=== PATIENT | female | born 1965 | race African-American/Black ===

== ENCOUNTER 2017-09-30 23:12 | Emergency (ER) | payer MEDICAID, OTHER ==
[~2017-09-30] VITALS: Ht 165.1 cm; Wt 68.0 kg
[~2017-09-30 23:12] MED LIST: ASPI81TA35; HYDR-2412; LIP40; NITR1OIN; TOPXL5
[2017-10-01 00:36] LABS: BASOPHILS % 0.6 % (0.0-2.0); HEMATOCRIT. 39.7 % (36.0-48.0); HEMOGLOBIN. 13.6 g/dL (12.0-16.0); MEAN CORPUSCULAR HEMOGLOBIN 31.4 pg (28.0-32.0); MONOCYTES % 8.6 % (2.0-8.0); NEUTROPHILS % 39.8 % (40.0-76.0); PLATELET 273 x1000/uL (130-400); RED BLOOD CELL COUNT 4.32 mill/uL (4.2-5.4)
[2017-10-01 00:37] LABS: CHLORIDE 109 mEq/L (98-107)
[2017-10-01 00:44] LABS: CARBON DIOXIDE 25 mEq/L (21-32); ETHANOL BLOOD < 10 mg/dL
[2017-10-01] MEDS ORDERED: LIDOCAINE 5% PATCH TOP NR (01:30)
[2017-10-01] MEDS ORDERED: POTASSIUM CHLORIDE 20MEQ TABLET SR PO ONE (01:30)
[2017-10-01 01:45] LABS: CLARITY URINE CLEAR (CLEAR); COLOR URINE YELLOW (YELLOW); GLUCOSE URINE NEGATIVE (NEGATIVE); KETONES URINE NEGATIVE (NEGATIVE); LEUKOCYTE ESTERASE URINE NEGATIVE (NEGATIVE); NITRITE URINE NEGATIVE (NEGATIVE); OCCULT BLOOD URINE NEGATIVE (NEGATIVE); PROTEIN URINE NEGATIVE (NEGATIVE); SPECIFIC GRAVITY URINE 1.007 (1.005-1.030); UROBILINOGEN URINE 0.2 E.U./dL (0.2-1.0)
[2017-10-01 01:59] LABS: *AMPHETAMINES SCREEN URINE NEGATIVE (NEGATIVE); *BARBITURATES SCREEN URINE NEGATIVE (NEGATIVE); *BENZODIAZEPINES SCREEN URINE PRESUMTIVE POSITIVE (NEGATIVE); *COCAINE SCREEN URINE NEGATIVE (NEGATIVE); CANNABINOID URINE SCREEN NEGATIVE (NEGATIVE); METHADONE URINE SCREEN NEGATIVE (NEGATIVE); OPIATES URINE SCREEN NEGATIVE (NEGATIVE); PHENCYCLIDINE URINE SCREEN NEGATIVE (NEGATIVE)
[2017-10-01] MEDS ORDERED: HYDROCODONE/ACETAMINOPHEN 5/325MG TABLET PO ONE (04:45)
[2017-10-01 15:00] VITALS: BP 149/95
== END 2017-10-01 16:35 | disposition home or self-care (01) ==
LOC: ER 23:15
DX: T42.4X2A Poisoning by benzodiazepines, intentional self-harm, initial encounter (principal); E78.00 Pure hypercholesterolemia, unspecified; I10 Essential (primary) hypertension; Z59.0 Homelessness; Z79.82 Long term (current) use of aspirin; Z85.841 Personal history of malignant neoplasm of brain; Y92.89 Other specified places as the place of occurrence of the external cause; Z88.6 Allergy status to analgesic agent
CPT/HCPCS: 36415; 80053; 80305; 80307; 80329; 81003; 85025; 99285; G0482

== ENCOUNTER 2018-05-25 12:00 | Emergency (ER) | payer MEDICAID ==
[~2018-05-25] VITALS: Ht 170.2 cm; Wt 76.0 kg
[~2018-05-25 12:00] MED LIST changes: -ASPI81TA35; +ASPI81TA47
[2018-05-25] MEDS ORDERED: CYCLOBENZAPRINE 10MG TABLET PO ONE (13:00)
[2018-05-25] MEDS ORDERED: KETOROLAC 15MG/ML VIAL IV ONE (13:00)
[2018-05-25 17:01] VITALS: BP 132/86
== END 2018-05-25 17:18 | disposition home or self-care (01) ==
LOC: ER 12:00
DX: M54.42 Lumbago with sciatica, left side (principal); R94.31 Abnormal electrocardiogram [ECG] [EKG]; D49.6 Neoplasm of unspecified behavior of brain; I10 Essential (primary) hypertension; Z88.5 Allergy status to narcotic agent; Z79.899 Other long term (current) drug therapy
CPT/HCPCS: 81025; 93005; 93971; 96374; 99284; J1885; Z7610

== ENCOUNTER 2018-06-01 10:36 | Emergency (ER) | payer MEDICAID ==
[~2018-06-01] VITALS: Ht 170.2 cm; Wt 65.0 kg
[2018-06-01] MEDS ORDERED: KETOROLAC 30MG/ML VIAL IM ONE (12:45)
[2018-06-01 14:55] VITALS: BP 147/94
== END 2018-06-01 15:06 | disposition home or self-care (01) ==
LOC: ER 10:36
DX: M17.12 Unilateral primary osteoarthritis, left knee (principal); M79.662 Pain in left lower leg; F41.9 Anxiety disorder, unspecified; I10 Essential (primary) hypertension; Z88.5 Allergy status to narcotic agent; Z79.82 Long term (current) use of aspirin
CPT/HCPCS: 73562; 96372; 99284; J1885

== ENCOUNTER 2019-09-03 10:09 | Emergency (ER) | payer MEDICAID ==
[~2019-09-03] VITALS: Ht 180.3 cm; Wt 77.0 kg
[~2019-09-03 10:09] MED LIST changes: -HYDR-2412; +HYDR-459
[2019-09-03] MEDS ORDERED: FAMOTIDINE 20MG/2ML VIAL IV ONE (10:30)
[2019-09-03] MEDS ORDERED: METHYLPREDNISOLONE SOD SUCC 125 MG/2 ML VIAL IV ONE (10:30)
[2019-09-03] MEDS ORDERED: DIPHENHYDRAMINE 50MG/ML VIAL IV ONE (10:30)
[2019-09-03 10:54] LABS: BASOPHILS % 0.4 % (0.0-2.0); EOSINOPHILS % 0.3 % (0.0-5.0); HEMATOCRIT. 41.7 % (36.0-48.0); HEMOGLOBIN. 14.4 g/dL (12.0-16.0); LYMPHOCYTES % 42.6 % (20.0-50.0); MEAN CORPUSCULAR HEMOGLOBIN 32.4 pg (28.0-32.0); MEAN CORPUSCULAR VOLUME 93.6 fL (81.0-99.0); MEAN PLATELET VOLUME 6.6 fl (7.4-10.4); MONOCYTES % 10.7 % (2.0-8.0); PLATELET 297 x1000/uL (130-400); RED BLOOD CELL COUNT 4.45 mill/uL (4.2-5.4); RED CELL DISTRIBUTION WIDTH 12.8 % (11.6-14.6)
[2019-09-03 10:57] LABS: CHLORIDE 108 mEq/L (98-107)
[2019-09-03 11:01] LABS: ETHANOL BLOOD < 10 mg/dL
[2019-09-03 13:03] VITALS: BP 127/79
== END 2019-09-03 13:10 | disposition home or self-care (01) ==
LOC: ER 10:09
DX: T78.40XA Allergy, unspecified, initial encounter (principal); X58.XXXA Exposure to other specified factors, initial encounter; I10 Essential (primary) hypertension
CPT/HCPCS: 36415; 80053; 80320; 85025; 96374; 96375; 99283; J1200; J2930; J3490; G0480

== ENCOUNTER 2022-09-10 16:51 | Inpatient (IN) | payer MEDICARE, MEDICAID ==
[~2022-09-10] VITALS: Ht 180.3 cm; Wt 77.7 kg
[2022-09-10] MEDS ORDERED: ACETAMINOPHEN 325MG TABLET PO NR (18:39)
[2022-09-10 20:18] LABS: CHLORIDE 108 mEq/L (98-107)
[2022-09-10 20:19] LABS: BASOPHILS % 0.5 % (0.0-2.0); EOSINOPHILS % 0.5 % (0.0-5.0); HEMATOCRIT. 47.4 % (36.0-48.0); HEMOGLOBIN. 16.3 g/dL (12.0-16.0); MEAN CORPUSCULAR HEMOGLOBIN 32.6 pg (28.0-32.0); MEAN CORPUSCULAR VOLUME 94.8 fL (81.0-99.0); MEAN PLATELET VOLUME 6.7 fl (7.4-10.4); MONOCYTES % 10.2 % (2.0-8.0); NEUTROPHILS % 48.8 % (40.0-76.0); PLATELET 288 x1000/uL (130-400); RED CELL DISTRIBUTION WIDTH 13.1 % (11.6-14.6)
[2022-09-10 20:26] LABS: ETHANOL BLOOD < 10 mg/dL
[2022-09-10] MEDS ORDERED: ASPIRIN 325MG EC TABLET PO ONE (23:30)
[2022-09-11] MEDS ORDERED: HYDROCODONE/ACETAMINOPHEN 5/325MG TABLET PO NR (00:30)
[2022-09-11 01:04] LABS: CLARITY URINE CLEAR (CLEAR); COLOR URINE YELLOW (YELLOW); KETONES URINE NEGATIVE (NEGATIVE); LEUKOCYTE ESTERASE URINE NEGATIVE (NEGATIVE); NITRITE URINE NEGATIVE (NEGATIVE); OCCULT BLOOD URINE NEGATIVE (NEGATIVE); PROTEIN URINE NEGATIVE (NEGATIVE); SPECIFIC GRAVITY URINE 1.022 (1.005-1.030)
[2022-09-11 01:19] LABS: *AMPHETAMINES SCREEN URINE NEGATIVE (NEGATIVE); *BARBITURATES SCREEN URINE NEGATIVE (NEGATIVE); *BENZODIAZEPINES SCREEN URINE NEGATIVE (NEGATIVE); *COCAINE SCREEN URINE PRESUMTIVE POSITIVE (NEGATIVE); CANNABINOID URINE SCREEN PRESUMTIVE POSITIVE (NEGATIVE); METHADONE URINE SCREEN NEGATIVE (NEGATIVE); OPIATES URINE SCREEN NEGATIVE (NEGATIVE); PHENCYCLIDINE URINE SCREEN NEGATIVE (NEGATIVE)
[2022-09-11] MEDS ORDERED: DOCUSATE SODIUM 100MG CAPSULE PO PRN (05:45)
[2022-09-11] MEDS ORDERED: NA PHOS,M-B/NA PHOS,DI-BA ENEMA 118ML PR PRN (05:45)
[2022-09-11] MEDS ORDERED: CLONIDINE 0.1MG TABLET PO PRN (05:45)
[2022-09-11] MEDS ORDERED: GUAIFENESIN 200MG/10ML SUGAR FREE UDC PO PRN (05:45)
[2022-09-11] MEDS ORDERED: ONDANSETRON HCL 4MG/2ML INJ IV PRN (05:45)
[2022-09-11] MEDS ORDERED: MAGNESIUM/ALUMINUM HYDROXIDE/SIMETHICONE 30ML UDC PO PRN (05:45)
[2022-09-11] MEDS ORDERED: ACETAMINOPHEN 325MG TABLET PO PRN (05:45)
[2022-09-11] MEDS ORDERED: IPRATROPIUM/ALBUTEROL 0.5-3(2.5)MG/3ML NEB HHN PRN (05:45)
[2022-09-11 06:10] LABS: BASOPHILS % 0.4 % (0.0-2.0); EOSINOPHILS % 0.8 % (0.0-5.0); HEMATOCRIT. 45.3 % (36.0-48.0); HEMOGLOBIN. 15.3 g/dL (12.0-16.0); LYMPHOCYTES % 42.6 % (20.0-50.0); MEAN CORPUSCULAR HEMOGLOBIN 32.5 pg (28.0-32.0); MEAN CORPUSCULAR VOLUME 95.8 fL (81.0-99.0); MEAN PLATELET VOLUME 6.3 fl (7.4-10.4); MONOCYTES % 13.3 % (2.0-8.0); NEUTROPHILS % 42.9 % (40.0-76.0); PLATELET 301 x1000/uL (130-400); RED BLOOD CELL COUNT 4.72 mill/uL (4.2-5.4); RED CELL DISTRIBUTION WIDTH 12.9 % (11.6-14.6)
[2022-09-11 06:17] LABS: CHLORIDE 109 mEq/L (98-107)
[2022-09-11 06:33] LABS: HDL CHOLESTEROL 42 mg/dL (40-59); LDL CHOLESTEROL 122 mg/dL (5-100); PHOSPHORUS 3.9 mg/dL (2.5-4.9); T4 FREE 0.88 ng/dL (0.76-1.46)
[2022-09-11] MEDS ORDERED: DEXTROSE 50% WATER 50ML SYRINGE IV PRN (07:00)
[2022-09-11] MEDS ORDERED: IOHEXOL-350 100 ML BOTTLE ONE (08:10)
[2022-09-11] MEDS: INSULIN LISPRO 100 UNITS/ML SUBCUT SCH ×4 (08:20→20:31)
[2022-09-11] MEDS: BLOOD SUGAR DIAGNOSTIC STRIP TEST SCH ×4 (08:44→20:22)
[2022-09-11 09:00] VITALS: BP 150/97
[2022-09-11] MEDS ORDERED: NITROGLYCERIN OINT 1GM/INCH UDPKT TD SCH (09:00)
[2022-09-11 09:14] VITALS: BP 150/97
[2022-09-11] MEDS ORDERED: GABA100C MT (09:30)
[2022-09-11] MEDS: NICOTINE 21MG PATCH TD SCH (09:43)
[2022-09-11] MEDS: HYDROXYZINE 25MG TABLET PO SCH (09:43)
[2022-09-11] MEDS: ENOXAPARIN 40MG/0.4ML SYR SUBCUT SCH (09:43)
[2022-09-11] MEDS: FAMOTIDINE 20MG TABLET PO SCH ×2 (09:43→20:31)
[2022-09-11] MEDS: ASPIRIN 81MG EC TABLET PO SCH (09:43)
[2022-09-11] MEDS: LEVETIRACETAM 500MG TABLET PO SCH ×2 (09:43→20:31)
[2022-09-11] MEDS ORDERED: GADOTERATE MEGLUMINE 5 MMOL/10 ML VIAL IV ONE (11:33)
[2022-09-11 12:00] VITALS: BP 154/88
[2022-09-11 16:00] VITALS: BP 133/78
[2022-09-11 20:02] VITALS: BP 126/63
[2022-09-11] MEDS: ATORVASTATIN CALCIUM 40MG TABLET PO SCH (20:31)
[2022-09-11] MEDS: ACETAMINOPHEN 325MG TABLET PO PRN (23:43)
[2022-09-12] VITALS (7 sets, daily range): BP systolic 128–159; BP diastolic 81–97
[2022-09-12] MEDS: BLOOD SUGAR DIAGNOSTIC STRIP TEST SCH ×4 (04:57→20:15)
[2022-09-12] MEDS: INSULIN LISPRO 100 UNITS/ML SUBCUT SCH ×4 (05:33→20:23)
[2022-09-12 07:39] LABS: HEMATOCRIT 44.7 % (36.0-48.0); HEMOGLOBIN 15.4 g/dL (12.0-16.0); MEAN CORPUSCULAR HEMOGLOBIN 32.5 pg (28.0-32.0); MEAN CORPUSCULAR VOLUME 94.6 fL (81.0-99.0); PLATELET 303 x1000/uL (130-400); RED BLOOD CELL COUNT 4.73 mill/uL (4.2-5.4); RED CELL DISTRIBUTION WIDTH 12.8 % (11.6-14.6)
[2022-09-12] MEDS: ENOXAPARIN 40MG/0.4ML SYR SUBCUT SCH (08:13)
[2022-09-12] MEDS: CLOPIDOGREL 75MG TABLET PO SCH (08:13)
[2022-09-12] MEDS: HYDROXYZINE 25MG TABLET PO SCH (08:13)
[2022-09-12] MEDS: LEVETIRACETAM 500MG TABLET PO SCH ×2 (08:14→20:14)
[2022-09-12] MEDS: FAMOTIDINE 20MG TABLET PO SCH ×2 (08:14→20:14)
[2022-09-12] MEDS: NICOTINE 21MG PATCH TD SCH (08:14)
[2022-09-12] MEDS: ASPIRIN 81MG EC TABLET PO SCH (08:14)
[2022-09-12 09:40] LABS: CHLORIDE 106 mEq/L (98-107)
[2022-09-12] MEDS: ACETAMINOPHEN 325MG TABLET PO PRN ×2 (15:27→20:14)
[2022-09-12] MEDS ORDERED: LEVE750T4 PO (17:13)
[2022-09-12] MEDS ORDERED: ABIL10 PO (17:13)
[2022-09-12] MEDS ORDERED: DULO60CA64 PO (17:13)
[2022-09-12] MEDS ORDERED: GABA-532 PO (17:13)
[2022-09-12] MEDS ORDERED: VALP250C3 PO (17:13)
[2022-09-12] MEDS: ATORVASTATIN CALCIUM 40MG TABLET PO SCH (20:14)
[2022-09-13 03:40] VITALS: BP 128/81
[2022-09-13] MEDS: BLOOD SUGAR DIAGNOSTIC STRIP TEST SCH ×4 (05:13→21:00)
[2022-09-13] MEDS: INSULIN LISPRO 100 UNITS/ML SUBCUT SCH ×4 (05:26→21:00)
[2022-09-13 08:25] VITALS: BP 140/87
[2022-09-13] MEDS: HYDROXYZINE 25MG TABLET PO SCH (08:53)
[2022-09-13] MEDS: FAMOTIDINE 20MG TABLET PO SCH ×2 (08:53→20:52)
[2022-09-13] MEDS: ASPIRIN 81MG EC TABLET PO SCH (08:53)
[2022-09-13] MEDS: LEVETIRACETAM 500MG TABLET PO SCH ×2 (08:53→20:52)
[2022-09-13] MEDS: NICOTINE 21MG PATCH TD SCH (08:53)
[2022-09-13] MEDS: ENOXAPARIN 40MG/0.4ML SYR SUBCUT SCH (08:53)
[2022-09-13] MEDS: CLOPIDOGREL 75MG TABLET PO SCH (08:53)
[2022-09-13] MEDS: ACETAMINOPHEN 325MG TABLET PO PRN (11:27)
[2022-09-13] MEDS: AMLODIPINE 5MG TABLET PO SCH (11:27)
[2022-09-13 11:34] VITALS: BP 159/90
[2022-09-13 16:03] VITALS: BP 117/73
[2022-09-13 20:30] VITALS: BP 128/75
[2022-09-13] MEDS: ATORVASTATIN CALCIUM 40MG TABLET PO SCH (20:52)
[2022-09-14 00:15] VITALS: BP 120/60
[2022-09-14] MEDS: ACETAMINOPHEN 325MG TABLET PO PRN ×2 (02:10→15:50)
[2022-09-14] MEDS: BLOOD SUGAR DIAGNOSTIC STRIP TEST SCH ×2 (06:54→12:34)
[2022-09-14] MEDS: INSULIN LISPRO 100 UNITS/ML SUBCUT SCH ×2 (06:54→12:34)
[2022-09-14 08:26] VITALS: BP 132/84
[2022-09-14] MEDS: AMLODIPINE 5MG TABLET PO SCH (10:27)
[2022-09-14] MEDS: ENOXAPARIN 40MG/0.4ML SYR SUBCUT SCH (10:27)
[2022-09-14] MEDS: ASPIRIN 81MG EC TABLET PO SCH (10:27)
[2022-09-14] MEDS: LEVETIRACETAM 500MG TABLET PO SCH (10:27)
[2022-09-14] MEDS: HYDROXYZINE 25MG TABLET PO SCH (10:27)
[2022-09-14] MEDS: CLOPIDOGREL 75MG TABLET PO SCH (10:27)
[2022-09-14] MEDS: FAMOTIDINE 20MG TABLET PO SCH (10:27)
[2022-09-14] MEDS: NICOTINE 21MG PATCH TD SCH (10:28)
[2022-09-14 12:12] VITALS: BP 145/89
[2022-09-14] MEDS ORDERED: CLOP75TA15 PO (15:01)
[2022-09-14 17:10] VITALS: BP 137/80
== END 2022-09-14 18:25 | disposition home health service (06) | DRG 66 ==
LOC: ER 16:51 → 8WST 09-11 00:23 → ENRESERV 09-11 07:42
PROVIDERS: ADMIT Internal Medicine; ATTEND Internal Medicine
PROC: 4A00X4Z Measurement of Central Nervous Electrical Activity, External Approach (ICD-10-PCS; principal; 2022-09-13)
DX: I63.9 Cerebral infarction, unspecified (principal); E87.6 Hypokalemia; F31.9 Bipolar disorder, unspecified; F41.9 Anxiety disorder, unspecified; I10 Essential (primary) hypertension; R29.810 Facial weakness; E78.5 Hyperlipidemia, unspecified; F17.210 Nicotine dependence, cigarettes, uncomplicated; Z86.73 Personal history of transient ischemic attack (TIA), and cerebral infarction without residual deficits; Z86.011 Personal history of benign neoplasm of the brain
CPT/HCPCS: 36415; 70496; 70498; 70553; 71045; 73560; 80048; 80053; 80061; 80305; 80320; 81003; 82962; 83036; 83735; 84100; 84439; 84443; 84484; 85025; 85027; 92523; 93005; 93306; 93970; 95816; 97162; 97166; 99285; A9577; J1650; J1815; Q9967; G0480

== ENCOUNTER 2022-10-17 09:24 | Emergency (ER) | payer MEDICARE, MEDICAID ==
[~2022-10-17] VITALS: Ht 167.6 cm; Wt 76.0 kg
[~2022-10-17 09:24] MED LIST changes: +ABIL10 PO; +CLOP75TA15 PO; +DULO60CA64 PO; +GABA-532 PO; +GABA100C MT; +LEVE750T4 PO; -NITR1OIN; +VALP250C3 PO
[2022-10-17] MEDS ORDERED: LORAZEPAM 0.5MG TABLET PO ONE ×2 (09:45→14:06)
[2022-10-17] MEDS ORDERED: IBUPROFEN 600MG TABLET PO ONE ×2 (09:45→14:06)
[2022-10-17] MEDS ORDERED: IBUP-2029 MT (14:04)
[2022-10-17] MEDS ORDERED: HYDR50TA55 MT (14:04)
[2022-10-17 14:12] VITALS: BP 150/88
== END 2022-10-17 14:26 | disposition home or self-care (01) ==
LOC: ER 09:24
DX: M54.50 Low back pain, unspecified (principal); F41.9 Anxiety disorder, unspecified; I10 Essential (primary) hypertension; Z86.73 Personal history of transient ischemic attack (TIA), and cerebral infarction without residual deficits; Z79.899 Other long term (current) drug therapy; Z88.5 Allergy status to narcotic agent
CPT/HCPCS: 99283

== ENCOUNTER 2022-12-13 14:54 | Emergency (ER) | payer MEDICARE, MEDICAID ==
[~2022-12-13 14:54] MED LIST changes: +HYDR50TA55 MT; +IBUP-2029 MT
== END 2022-12-13 15:33 | disposition left against medical advice (07) ==
LOC: ER 14:54
DX: Z53.21 Procedure and treatment not carried out due to patient leaving prior to being seen by health care provider (principal)

== ENCOUNTER 2023-07-26 13:58 | Emergency (ER) | payer BC, MEDICAID ==
[~2023-07-26] VITALS: Ht 172.7 cm; Wt 85.0 kg
[2023-07-26 14:06] VITALS: O2SAT 98
[2023-07-26] MEDS ORDERED: ACETAMINOPHEN 325MG TABLET PO STA (14:26)
[2023-07-26 14:54] LABS: BASOPHILS % 0.5 % (0.0-2.0); EOSINOPHILS % 0.7 % (0.0-5.0); HEMATOCRIT. 42.4 % (36.0-48.0); HEMOGLOBIN. 14.4 g/dL (12.0-16.0); LYMPHOCYTES % 35.9 % (20.0-50.0); MEAN CORPUSCULAR HEMOGLOBIN 31.7 pg (28.0-32.0); MEAN CORPUSCULAR HGB CONC 33.9 g/dL (31.0-37.0); MEAN CORPUSCULAR VOLUME 93.7 fL (81.0-99.0); MEAN PLATELET VOLUME 6.8 fl (7.4-10.4); MONOCYTES % 10.6 % (2.0-8.0); NEUTROPHILS % 52.3 % (40.0-76.0); PLATELET 288 x1000/uL (130-400); RED BLOOD CELL COUNT 4.53 mill/uL (4.2-5.4); RED CELL DISTRIBUTION WIDTH 12.5 % (11.6-14.6); WHITE BLOOD COUNT 5.3 x1000/uL (4.5-11.0)
[2023-07-26 15:01] LABS: CHLORIDE 112 mEq/L (98-107); INDEX HEMOLYSI 2 (1-3); INDEX ICTERIC 1 (1-4); INDEX LIPEMIC 1 (1-3); POTASSIUM 3.7 mEq/L (3.5-5.1); SODIUM 141 mEq/L (136-145)
[2023-07-26 15:06] LABS: PROTHROMBIN TIME 10.7 sec (9.6-11.0)
[2023-07-26 15:11] LABS: ALANINE AMINOTRANSFERASE 32 IU/L (13-61); ALBUMIN 3.4 g/dL (3.4-5.0); ASPARTATE AMINOTRANSFERASE 19 IU/L (15-37); BILIRUBIN TOTAL 0.2 mg/dL (0.1-1.0); CALCIUM 8.8 mg/dL (8.5-10.1); CARBON DIOXIDE 25 mEq/L (21-32); CREATININE 0.7 mg/dL (0.6-1.3); ETHANOL BLOOD < 10 mg/dL (<10); GLUCOSE 120 mg/dL (70-105); PROTEIN TOTAL 6.9 g/dL (6.0-8.3); TROPONIN I HIGH SENSITIVITY 5 ng/L (<54); UREA NITROGEN BLOOD 17 mg/dL (7-21)
[2023-07-26] MEDS ORDERED: ACETAMINOPHEN 325MG TABLET PO NR (16:45)
[2023-07-26 18:29] LABS: CLARITY URINE CLEAR (CLEAR); COLOR URINE YELLOW (YELLOW); GLUCOSE URINE NEGATIVE (NEGATIVE); KETONES URINE NEGATIVE (NEGATIVE); LEUKOCYTE ESTERASE URINE NEGATIVE (NEGATIVE); NITRITE URINE POSITIVE (NEGATIVE); OCCULT BLOOD URINE NEGATIVE (NEGATIVE); PH URINE 6.5 (4.5-8.0); PROTEIN URINE NEGATIVE (NEGATIVE); SPECIFIC GRAVITY URINE 1.019 (1.005-1.030); UROBILINOGEN URINE 0.2 E.U./dL (0.2-1.0)
[2023-07-26 18:33] LABS: YEAST URINE NONE SEEN
[2023-07-26 18:44] LABS: *AMPHETAMINES SCREEN URINE NEGATIVE (NEGATIVE); *BARBITURATES SCREEN URINE NEGATIVE (NEGATIVE); *BENZODIAZEPINES SCREEN URINE NEGATIVE (NEGATIVE); *COCAINE SCREEN URINE PRESUMTIVE POSITIVE (NEGATIVE); CANNABINOID URINE SCREEN NEGATIVE (NEGATIVE); ECSTASY MDMA SCREEN URINE NEGATIVE (NEGATIVE); OPIATES URINE SCREEN NEGATIVE (NEGATIVE); PHENCYCLIDINE URINE SCREEN NEGATIVE (NEGATIVE)
[2023-07-26 19:21] LABS: BACTERIA URINE 3+; RBC URINE 0-2 /hpf (0-2); SQUAMOUS EPITHELIAL CELL URINE FEW /lpf (RARE/1+); WBC URINE 0-2 /hpf (0-2)
[2023-07-26 22:18] VITALS: BP 153/78; PULSE 62; RESP 16; TEMP 98.3
== END 2023-07-26 22:55 | disposition short-term general hospital (02) ==
LOC: ER 14:05
DX: R53.1 Weakness (principal); R51.9 Headache, unspecified; I10 Essential (primary) hypertension; Z86.73 Personal history of transient ischemic attack (TIA), and cerebral infarction without residual deficits; Z88.5 Allergy status to narcotic agent
CPT/HCPCS: 36415; 71045; 80053; 80305; 80320; 81003; 84484; 85025; 86850; 86900; 93005; 99285; G0480

== ENCOUNTER 2024-09-02 07:42 | Emergency (ER) | payer MEDICARE, MEDICAID ==
[~2024-09-02] VITALS: Ht 180.3 cm; Wt 84.0 kg
[2024-09-02 07:46] VITALS: TEMP 98.2; O2SAT 95
[2024-09-02 09:07] LABS: BASOPHILS % 0.5 % (0.0-2.0); EOSINOPHILS % 0.6 % (0.0-5.0); HEMATOCRIT. 40.2 % (36.0-48.0); HEMOGLOBIN. 13.3 g/dL (12.0-16.0); LYMPHOCYTES % 22.8 % (20.0-50.0); MEAN CORPUSCULAR HEMOGLOBIN 30.9 pg (28.0-32.0); MEAN CORPUSCULAR VOLUME 93.7 fL (81.0-99.0); MEAN PLATELET VOLUME 6.2 fl (7.4-10.4); MONOCYTES % 10.3 % (2.0-8.0); NEUTROPHILS % 65.8 % (40.0-76.0); PLATELET 411 x1000/uL (130-400); RED CELL DISTRIBUTION WIDTH 13.2 % (11.6-14.6); WHITE BLOOD COUNT 5.7 x1000/uL (4.5-11.0)
[2024-09-02 09:11] VITALS: BP 155/91; PULSE 81; RESP 18
[2024-09-02] MEDS: ONDANSETRON 4MG ODT PO ONE (09:11)
[2024-09-02] MEDS: IBUPROFEN 400MG TABLET PO ONE (09:11)
[2024-09-02 09:26] LABS: CHLORIDE 109 mEq/L (98-107); POTASSIUM 3.8 mEq/L (3.5-5.1); SODIUM 140 mEq/L (136-145)
[2024-09-02 09:28] LABS: CREATININE 0.8 mg/dL (0.6-1.0); GLUCOSE 143 mg/dL (70-105)
[2024-09-02 09:29] LABS: UREA NITROGEN BLOOD 12 mg/dL (9-23)
[2024-09-02 09:30] LABS: ALANINE AMINOTRANSFERASE 14 IU/L (10-49)
[2024-09-02 09:31] LABS: ALBUMIN 4.2 g/dL (3.2-4.8); ASPARTATE AMINOTRANSFERASE 15 IU/L (<34); BILIRUBIN TOTAL 0.4 mg/dL (0.1-1.0); PROTEIN TOTAL 7.8 g/dL (6.0-8.3)
[2024-09-02 09:41] LABS: CARBON DIOXIDE 24 mEq/L (21-32)
[2024-09-02 09:52] LABS: CALCIUM 9.4 mg/dL (8.7-10.4)
[2024-09-02] MEDS ORDERED: ONDA-239 PO (09:55)
[2024-09-02] MEDS ORDERED: LOPE2TAB26 MT (09:55)
[2024-09-02] MEDS ORDERED: TOPUD MT (09:55)
[2024-09-02 10:00] LABS: CLARITY URINE CLOUDY (CLEAR); COLOR URINE DARK YELLOW (YELLOW); GLUCOSE URINE NEGATIVE (NEGATIVE); KETONES URINE TRACE (NEGATIVE); LEUKOCYTE ESTERASE URINE 1+ (NEGATIVE); NITRITE URINE POSITIVE (NEGATIVE); OCCULT BLOOD URINE NEGATIVE (NEGATIVE); PH URINE 5.5 (4.5-8.0); PROTEIN URINE 1+ (NEGATIVE); SPECIFIC GRAVITY URINE 1.027 (1.005-1.030)
[2024-09-02 10:19] LABS: BACTERIA URINE 3+; RBC URINE 0-2 /hpf (0-2); SQUAMOUS EPITHELIAL CELL URINE 2+ /lpf (RARE/1+); YEAST URINE NONE SEEN
[2024-09-03] MEDS ORDERED: TOPUD MT (12:15)
[2024-09-03] MEDS ORDERED: ONDA-239 PO (12:15)
[2024-09-03] MEDS ORDERED: CEFU500T41 MT (12:15)
[2024-09-03] MEDS ORDERED: DIPH-1091 MT (12:15)
== END 2024-09-02 10:46 | disposition home or self-care (01) ==
LOC: ER 07:42
DX: R11.0 Nausea (principal); F41.9 Anxiety disorder, unspecified; I10 Essential (primary) hypertension; Z86.73 Personal history of transient ischemic attack (TIA), and cerebral infarction without residual deficits; Z88.5 Allergy status to narcotic agent; Z79.899 Other long term (current) drug therapy
CPT/HCPCS: 99283; 80053; 81003; 83690; 83735; 85025; 87086; 87186; 87077; 36415; Q0162

== ENCOUNTER 2024-09-03 09:13 | Emergency (ER) | payer MEDICARE, MEDICAID ==
[~2024-09-03] VITALS: Ht 180.3 cm; Wt 75.0 kg
[~2024-09-03 09:13] MED LIST changes: +LOPE2TAB26 MT; +ONDA-239 PO; +TOPUD MT
[2024-09-03 09:18] VITALS: O2SAT 96
[2024-09-03 09:45] LABS: BASOPHILS % 0.8 % (0.0-2.0); EOSINOPHILS % 0.4 % (0.0-5.0); HEMOGLOBIN. 12.7 g/dL (12.0-16.0); LYMPHOCYTES % 20.2 % (20.0-50.0); MEAN CORPUSCULAR HEMOGLOBIN 32.1 pg (28.0-32.0); MEAN CORPUSCULAR HGB CONC 34.4 g/dL (31.0-37.0); MEAN CORPUSCULAR VOLUME 93.3 fL (81.0-99.0); MEAN PLATELET VOLUME 6.4 fl (7.4-10.4); MONOCYTES % 8.7 % (2.0-8.0); NEUTROPHILS % 69.9 % (40.0-76.0); PLATELET 396 x1000/uL (130-400); RED BLOOD CELL COUNT 3.97 mill/uL (4.2-5.4); RED CELL DISTRIBUTION WIDTH 13.1 % (11.6-14.6); WHITE BLOOD COUNT 5.5 x1000/uL (4.5-11.0)
[2024-09-03 09:50] LABS: CHLORIDE 108 mEq/L (98-107); POTASSIUM 3.7 mEq/L (3.5-5.1); SODIUM 140 mEq/L (136-145)
[2024-09-03 09:51] LABS: CARBON DIOXIDE 25 mEq/L (21-32)
[2024-09-03 09:52] LABS: CALCIUM 9.3 mg/dL (8.7-10.4)
[2024-09-03 09:56] LABS: CREATININE 0.8 mg/dL (0.6-1.0); GLUCOSE 305 mg/dL (70-105); UREA NITROGEN BLOOD 12 mg/dL (9-23)
[2024-09-03 10:47] LABS: CLARITY URINE CLEAR (CLEAR); COLOR URINE DARK YELLOW (YELLOW); GLUCOSE URINE 1+ (NEGATIVE); KETONES URINE NEGATIVE (NEGATIVE); LEUKOCYTE ESTERASE URINE NEGATIVE (NEGATIVE); NITRITE URINE POSITIVE (NEGATIVE); OCCULT BLOOD URINE NEGATIVE (NEGATIVE); PH URINE 5.5 (4.5-8.0); PROTEIN URINE 1+ (NEGATIVE); SPECIFIC GRAVITY URINE 1.028 (1.005-1.030)
[2024-09-03 11:01] LABS: BACTERIA URINE 3+; RBC URINE 0-2 /hpf (0-2); SQUAMOUS EPITHELIAL CELL URINE 2+ /lpf (RARE/1+); YEAST URINE NONE SEEN
[2024-09-03] MEDS ORDERED: CEFU500T41 MT (12:15)
[2024-09-03] MEDS ORDERED: DIPH-1091 MT (12:15)
[2024-09-03] MEDS ORDERED: TOPUD MT (12:15)
[2024-09-03] MEDS ORDERED: ONDA-239 PO (12:15)
[2024-09-03 15:33] VITALS: BP 132/84; PULSE 78; RESP 18; TEMP 36.39180; O2SAT 99
== END 2024-09-03 15:35 | disposition home or self-care (01) ==
LOC: ER 09:42
DX: N39.0 Urinary tract infection, site not specified (principal); R19.7 Diarrhea, unspecified; E78.00 Pure hypercholesterolemia, unspecified; F41.9 Anxiety disorder, unspecified; I10 Essential (primary) hypertension; Z90.89 Acquired absence of other organs; Z79.899 Other long term (current) drug therapy; Z86.73 Personal history of transient ischemic attack (TIA), and cerebral infarction without residual deficits; Z88.5 Allergy status to narcotic agent
CPT/HCPCS: 36415; 74176; 80048; 81003; 85025; 99284